=== PATIENT | female | born 1965 | race Caucasian/White ===

== ENCOUNTER 2020-03-15 03:21 | Emergency (ER) | payer BC, OTHER ==
[~2020-03-15] VITALS: Ht 167.6 cm; Wt 104.0 kg
--- NOTE | 2020-03-15 03:43 | NUR ---
Patient presents to ER c/o burning in upper back which radiates to arms. Patient states symptoms started 4 days ago. 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 Patient is in NAD. Respirations even and unlabored.
[2020-03-15 04:13] LABS: BASOPHILS % (AUTO) 1 % (0-1); EOSINOPHILS % (AUTO) 1 % (1-7); LYMPHOCYTES % (AUTO) 35 % (22-44); MEAN CORPUSCULAR HEMOGLOBIN 29.9 pg (27.0-34.8); MEAN CORPUSCULAR HGB CONC 34.3 g/dL (32.4-35.8); MEAN PLATELET VOLUME 8.9 fL (7.4-10.4); MONOCYTES % (AUTO) 9 % (2-9); NEUTROPHILS % (AUTO) 54 % (42-75); PLATELET COUNT 298 x10^3/uL (130-400); RED BLOOD COUNT 4.56 x10^6/uL (3.82-5.3); RED CELL DISTRIBUTION WIDTH 13.8 % (9.6-15.2)
[2020-03-15 04:19] LABS: MD NO
[2020-03-15 04:27] LABS: ALBUMIN 3.9 g/dL (3.4-5.0); ANION GAP 4 mmol/L (5-15); CALCIUM 9.3 mg/dL (8.5-10.1); CHLORIDE 107 mmol/L (98-107); CREATININE 0.83 mg/dL (0.55-1.02)
[2020-03-15 04:30] LABS: TROPONIN I < 0.015 ng/mL (0.000-0.045)
[2020-03-15 04:50] VITALS: BP 121/68
== END 2020-03-15 05:09 | disposition home or self-care (01) ==
LOC: ED 04:30
DX: R07.89 Other chest pain (principal); M54.6 Pain in thoracic spine; R94.31 Abnormal electrocardiogram [ECG] [EKG]
CPT/HCPCS: 36415; 71045; 80048; 82040; 84484; 85025; 93005; 99285